=== PATIENT | female | born 1955 | race Caucasian/White ===

== ENCOUNTER → 2017-04-04 | Outpatient (CLI) | payer BC ==
[~2017-04-04] MED LIST: BIOTIN2500 MCG PO; CITALOPRAM HBR40 MG PO; FLAX SEED OIL1000 MG PO; LEVOTHROID (SY25 MCG PO; LEVOTHROID (SY50 MCG PO; PRILOSEC10 MG PO; PRIMIDONE50 MG PO; ROZEREM8 MG PO; WOMEN'S DAILY1 EAC1 PO
== END | disposition disaster alternative care site (69) ==
LOC: GBCOE 08:12
DX: Z12.31 Encounter for screening mammogram for malignant neoplasm of breast (principal)
CPT/HCPCS: G0202